=== PATIENT | female | born 1955 | race American Indian/Alaskan Native ===

== ENCOUNTER 2016-12-30 12:35 | Day surgery (SDC) | payer OTHER ==
[2016-12-30] MEDS ORDERED: NACL 0.9% 1000 ML 1,000 ML IV SCH (13:00)
--- NOTE | 2016-12-30 14:05 | Anesthesia Day of Surgery ---
Anesthesia Day of Surgery - Day of Surgery Patient Examined: Yes Patient H&P Reviewed: Yes Patient is NPO: Yes
--- NOTE | 2016-12-30 14:05 | Anesthesia Consultation ---
Anesthesia Consult and Med Hx Date of service: 12/30/16 - Airway Anesthetic Teeth Evaluation: Good ROM Head & Neck: Adequate Mental/Hyoid Distance: Adequate Mallampati Class: Class II Intubation Access Assessment: Probably Good - Pulmonary Exam CTA: Yes - Cardiac Exam Cardiac Exam: RRR - Pre-Operative Health Status ASA Pre-Surgery Classification: ASA3 Proposed Anesthetic Plan: MAC - Pulmonary Hx Smoking: Yes Hx Respiratory Symptoms: Yes (bronchitis, used albuterol this AM) - Cardiovascular System Hx Hypertension: Yes Hx Heart Attack/AMI: No - Central Nervous System Hx Seizures: No CVA: No Hx Back Pain: No - Gastrointestinal Hx Gastroesophageal Reflux Disease: No - Endocrine Hx Renal Disease: No Hx Liver Disease: No Hx Non-Insulin Dependent Diabetes: Yes - Hematic Hx Sickle Cell Disease: No - Other Systems Hx Obesity: Yes - Additional Comments Anesthesia Medical History Comments: PAIGE
[2016-12-30] MEDS ORDERED: DIPRIVAN 10 MG/ML IV ONE ×2 (16:19)
[2016-12-30] MEDS ORDERED: WATER FOR IRRIG STERILE IR ONE (16:22)
[2016-12-30] MEDS ORDERED: XYLOCAINE MPF 2% ONE (16:25)
--- NOTE | 2016-12-30 17:10 | Operative Report ---
Operative Report Operative Report: Date of procedure: 12/30/2016 Procedure: Colonoscopy with hot biopsy polypectomy and ablation Attending physician: Oneil Coker MD Bloom Conveyor Operator: Oneil Coker MD Indication: Patient is a 61-year-old female who presents for colorectal cancer screening. She has a past history of colon polyps. Consent: Informed consent was obtained after advising the patient and family regarding nature of this procedure, its indications, potential benefits as well as possible complications including but not limited to bleeding perforation and adverse reaction to medication, infection as well as other cardiopulmonary complications. An informed written and verbal consent was then obtained after due opportunity was provided for questions and answers. Monitoring: Patient was monitored continuously with pulse oximetry and electrocardiographic recordings as well as blood pressure recordings. Vital signs remained stable throughout this procedure with no untoward events. Preoperative assessment: Patient was assessed immediately prior to this procedure for capacity to tolerate monitored anesthesia care and moderate sedation as well as general anesthesia. Patient's ASA classification is 2, Mallampati class is 2, Hyomental distance is 3. Instrument: Fujinon videocolonoscope Medications: Propofol given intravenously in divided doses. For details please refer to anesthesia records. Description of procedure: Patient was placed in the left lateral decubitus position after achieving sedation, a digital rectal examination was performed following which the colonoscope was introduced into the anal verge and advanced to the cecum which was identified by the cecal valve, the appendiceal orifice, as well as by the cecal strap and direct transillumination. The colonoscope was subsequently withdrawn with careful inspection of all mucosal surfaces. Patient tolerated this procedure well and was subsequently taken to the recovery room. The following findings were noted. Findings: Patient had a diminutive polyp in the sigmoid colon which was removed by hot biopsy polypectomy. There was a flat diminutive polyp in the sigmoid colon which was also ablated. There were a few scattered diverticula seen in the sigmoid and descending colon. There are scattered retained stool seen throughout his colon. The rest of the colon however did not have any other mucosal abnormalities. On the retroflex view at the anal verge patient had internal hemorrhoids. Impression: Diminutive sigmoid colon polyp status post hot biopsy polypectomy and ablation Diverticulosis. Retained stool. Internal hemorrhoids. Plan: Follow pathology report High-fiber diet Repeat colonoscopy in 5 years.
--- NOTE | 2016-12-30 17:11 | Discharge Summary ---
Short Stay Discharge Plan Activity: advance as tolerated Weight Bearing Status: Weight Bear as Tolerated Diet: regular Follow up with: CASSANDRA NAVARRETE DO [Primary Care Provider] - 7 Days
[2016-12-30 17:15] VITALS: BP 130/66
--- NOTE | 2016-12-30 17:42 | Post Anesthesia Evaluation ---
- Post Anesthesia Evaluation Patient Participated: Yes Airway Patent: Yes Stable Respiratory Function: Yes Temp > 96.8F: Yes Pain Manageable: Yes Adequeate Hydration: Yes Anesthesia Complications: No Block Receding Appropriately: Not Applicable
== END 2016-12-30 12:36 | disposition home or self-care (01) ==
LOC: GIO 12:35
PROVIDERS: ATTEND Internal Medicine Gastroenterology
DX: Z12.11 Encounter for screening for malignant neoplasm of colon (principal); K63.5 Polyp of colon; K64.8 Other hemorrhoids; K57.30 Diverticulosis of large intestine without perforation or abscess without bleeding; F41.9 Anxiety disorder, unspecified; F32.9 Major depressive disorder, single episode, unspecified; M19.90 Unspecified osteoarthritis, unspecified site; E11.9 Type 2 diabetes mellitus without complications; I10 Essential (primary) hypertension; E66.9 Obesity, unspecified; Z86.010 Personal history of colon polyps; Z98.890 Other specified postprocedural states; Z87.891 Personal history of nicotine dependence; Z83.3 Family history of diabetes mellitus; Z83.71 Family history of colonic polyps; Z80.1 Family history of malignant neoplasm of trachea, bronchus and lung; Z68.33 Body mass index [BMI] 33.0-33.9, adult
CPT/HCPCS: 45384; 45388; 82962; 88305; J2704; J7030

== ENCOUNTER 2017-03-03 04:56 | Emergency (ER) | payer OTHER ==
[2017-03-03 05:43] LABS: Basophils % (Auto) 0.7 % (0.0-1.8); Hematocrit 37.4 % (30.3-42.9); Hemoglobin 12.4 gm/dl (10.1-14.3); Mean Corpuscular HGB Conc 33 % (30-34); Mean Corpuscular Hemoglobin 29 pg (28-32); Mean Corpuscular Volume 86 fl (79-97); Platelet Count 273 K/mm3 (140-440); Red Blood Count 4.34 M/mm3 (3.65-5.03); Red Cell Distribution Width 13.9 % (13.2-15.2); White Blood Count 4.8 K/mm3 (4.5-11.0)
[2017-03-03 06:10] LABS: Anion Gap 22 mmol/L; BUN/Creatinine Ratio 18.33; Blood Urea Nitrogen 11 mg/dL (7-17); Calcium 9.7 mg/dL (8.4-10.2); Carbon Dioxide 22 mmol/L (22-30); Chloride 98.2 mmol/L (98-107); Glucose 179 mg/dL (65-100); Potassium 3.7 mmol/L (3.6-5.0); Sodium 138 mmol/L (137-145)
[2017-03-03] MEDS ORDERED: TORADOL IM ONE (09:16)
[2017-03-03] MEDS ORDERED: NORCO 5/325 PO ONE (09:16)
--- NOTE | 2017-03-03 09:33 | XRay Report ---
ROUTINE CHEST, TWO VIEWS: HISTORY: Chest pain, shortness of breath. The trachea, heart, mediastinal contour, lung lawrence and bony thorax are unremarkable. IMPRESSION: Unremarkable chest x-ray. No significant change since 09/23/15.
--- NOTE | 2017-03-03 10:33 | Emergency Department Report ---
ED Chest Pain HPI - General Chief Complaint: Chest Pain Stated Complaint: CP Time Seen by Provider: 03/03/17 08:53 Source: patient, family Mode of arrival: Wheelchair Limitations: No Limitations - History of Present Illness Initial Comments: 61-year-old female with a past medical history diabetes, hypertension, anxiety, and panic attacks presents to the hospital complaints of chest pain 3 days that has progressively worsening. Pain described as a pressure and sharp at time in the sternum that is constant and radiates to the back. They should also states that it feels as if she needs to cough something up but can't. Pain is rated 8/10 in intensity. Pain worse with movement. Mild shortness of breath associated. Patient states that last week she was having a lot of sinus drainage, itchy eyes, and cough. She continues to have these symptoms secondary to pollen. She does not currently take any medications for allergies. She states she feels like she needs something to break up the mucus in her chest. Patient denies any nausea, vomiting, diaphoresis, cough, fever, calf tenderness, edema, recent travel, tobacco use, or family history of CAD. She reports a negative stress test in November 2016 performed on [facility] (? [facility] based on internet search) She has not taken any medication for pain. PMD: Dr. Adam Severity scale (0 -10): 8 - Related Data Home Medications Medication Instructions Recorded Confirmed Last Taken ALBUTEROL NEB's [Proventil] 2.5 mg IH Q4H PRN 03/03/17 03/03/17 1 Day Ago Acyclovir [Acyclovir Ointment] 1 applicatio TP TID 03/03/17 03/03/17 1 Day Ago Aspirin 81 mg PO QHS 03/03/17 03/03/17 1 Day Ago AtorvaSTATin [Lipitor] 20 mg PO QHS 03/03/17 03/03/17 1 Day Ago DULoxetine [Cymbalta] 30 mg PO DAILY 03/03/17 03/03/17 1 Day Ago Ergocalciferol [Vitamin D2] 1 cap PO QWEEK 03/03/17 03/03/17 1 Day Ago Hydrochlorothiazide [HCTZ] 25 mg PO QDAY 03/03/17 03/03/17 1 Day Ago LORazepam [Ativan] 1 mg PO DAILY PRN 03/03/17 03/03/17 1 Day Ago Losartan [Cozaar] 100 mg PO QDAY 03/03/17 03/03/17 1 Day Ago Nystatin/Triamcin [Mycolog Cream] 1 applicatio TP BID 03/03/17 03/03/17 1 Day Ago Phoenix-3 Fatty Acids [Fish Oil] 500 mg PO DAILY 03/03/17 03/03/17 1 Day Ago Verapamil [Calan] 120 mg PO QHS 03/03/17 03/03/17 1 Day Ago cloNIDine [Catapres] 0.2 mg PO BID 03/03/17 03/03/17 1 Day Ago clonazePAM [Klonopin] 2 mg PO TID 03/03/17 03/03/17 1 Day Ago guaiFENesin/CODEINE [Robitussin AC] 5 ml PO TID PRN 03/03/17 03/03/17 1 Day Ago metFORMIN [Glucophage] 500 mg PO BID 03/03/17 03/03/17 1 Day Ago Previous Rx's Medication Instructions Recorded Last Taken Type Cetirizine HCl [ZyrTEC] 10 mg PO DAILY PRN #30 tab.chew 03/03/17 Unknown Rx Ibuprofen [Motrin] 600 mg PO Q8H PRN #30 tablet 03/03/17 Unknown Rx traMADol [Ultram 50 MG tab] 50 mg PO Q6HR PRN #20 tablet 03/03/17 Unknown Rx Allergies Allergy/AdvReac Type Severity Reaction Status Date / Time No Known Allergies Allergy Verified 09/28/15 04:56 IVETH score - Iveth Score Age > 65: (0) No Aspirin use within the Past 7 Days: (1) Yes 3 or more CAD Risk Factors: (1) Yes 2 or more Angina events in past 24 hrs: (0) No Known CAD with more than 50% Stenosis: (0) No Elevated Cardiac Markers: (0) No ST Deviation Greater than 0.5mm: (0) No IVETH Score: 2 ED Review of Systems ROS: Stated complaint: CP Other details as noted in HPI Comment: All other systems reviewed and negative Other: Constitutional: No fevers chills Eyes: No eye pain visual changes ENT: No ear pain or throat pain Neck: Denies pain Respiratory: Denies cough wheezing Cardiovascular: as per hpi GI: Denies abdominal pain, nausea, vomiting, diarrhea : Denies dysuria, urinary frequency, or urgency Musculoskeletal: Denies back pain Skin: Denies rash, lesions, erythema Neurologic: Denies headache, numbness, weakness Psychiatric: Denies suicidal ideation, hallucinations ED Past Medical Hx - Past Medical History Hx Hypertension: Yes Hx Heart Attack/AMI: No Hx Diabetes: Yes Hx Liver Disease: No Hx Renal Disease: No Hx Sickle Cell Disease: No Hx Arthritis: Yes Hx Seizures: No Hx Psychiatric Treatment: Yes (ANXIETY/ PANIC ATTACKS/ DEPRESSION) Additional medical history: HERPES - Surgical History Hx Cholecystectomy: Yes Hx Appendectomy: Yes Additional Surgical History: HYSTERECTOMY. LEFT KNEE SURGERY X 2. RIGHT KNEE SURGERY. RIGHT CARPAL TUNNEL RELEASE. TONSILLECTOMY - Social History Smoking Status: Former Smoker Substance Use Type: None - Medications Home Medications: Home Medications Medication Instructions Recorded Confirmed Last Taken Type ALBUTEROL NEB's [Proventil] 2.5 mg IH Q4H PRN 03/03/17 03/03/17 1 Day Ago History Acyclovir [Acyclovir Ointment] 1 applicatio TP TID 03/03/17 03/03/17 1 Day Ago History Aspirin 81 mg PO QHS 03/03/17 03/03/17 1 Day Ago History AtorvaSTATin [Lipitor] 20 mg PO QHS 03/03/17 03/03/17 1 Day Ago History Cetirizine HCl [ZyrTEC] 10 mg PO DAILY PRN #30 tab.chew 03/03/17 Unknown Rx DULoxetine [Cymbalta] 30 mg PO DAILY 03/03/17 03/03/17 1 Day Ago History Ergocalciferol [Vitamin D2] 1 cap PO QWEEK 03/03/17 03/03/17 1 Day Ago History Hydrochlorothiazide [HCTZ] 25 mg PO QDAY 03/03/17 03/03/17 1 Day Ago History Ibuprofen [Motrin] 600 mg PO Q8H PRN #30 tablet 03/03/17 Unknown Rx LORazepam [Ativan] 1 mg PO DAILY PRN 03/03/17 03/03/17 1 Day Ago History Losartan [Cozaar] 100 mg PO QDAY 03/03/17 03/03/17 1 Day Ago History Nystatin/Triamcin [Mycolog Cream] 1 applicatio TP BID 03/03/17 03/03/17 1 Day Ago History Phoenix-3 Fatty Acids [Fish Oil] 500 mg PO DAILY 03/03/17 03/03/17 1 Day Ago History Verapamil [Calan] 120 mg PO QHS 03/03/17 03/03/17 1 Day Ago History cloNIDine [Catapres] 0.2 mg PO BID 03/03/17 03/03/17 1 Day Ago History clonazePAM [Klonopin] 2 mg PO TID 03/03/17 03/03/17 1 Day Ago History guaiFENesin/CODEINE [Robitussin AC] 5 ml PO TID PRN 03/03/17 03/03/17 1 Day Ago History metFORMIN [Glucophage] 500 mg PO BID 03/03/17 03/03/17 1 Day Ago History traMADol [Ultram 50 MG tab] 50 mg PO Q6HR PRN #20 tablet 03/03/17 Unknown Rx ED Physical Exam - General Limitations: No Limitations - Other Other exam information: Lab Results 03/03/17 03/03/17 03/03/17 Range/Units 05:19 05:19 08:08 WBC 4.8 (4.5-11.0) K/mm3 RBC 4.34 (3.65-5.03) M/mm3 Hgb 12.4 (10.1-14.3) gm/dl Hct 37.4 (30.3-42.9) % MCV 86 (79-97) fl MCH 29 (28-32) pg MCHC 33 (30-34) % RDW 13.9 (13.2-15.2) % Plt Count 273 (140-440) K/mm3 Lymph % (Auto) 38.6 H (13.4-35.0) % Crane % (Auto) 9.1 H (0.0-7.3) % Eos % (Auto) 2.0 (0.0-4.3) % Baso % (Auto) 0.7 (0.0-1.8) % Lymph # 1.9 (1.2-5.4) K/mm3 Crane # 0.4 (0.0-0.8) K/mm3 Eos # 0.1 (0.0-0.4) K/mm3 Baso # 0.0 (0.0-0.1) K/mm3 Seg Neutrophils % 49.6 (40.0-70.0) % Seg Neutrophils # 2.4 (1.8-7.7) K/mm3 D-Dimer (0-234) ng/mlDDU Sodium 138 (137-145) mmol/L Potassium 3.7 (3.6-5.0) mmol/L Chloride 98.2 (98-107) mmol/L Carbon Dioxide 22 (22-30) mmol/L Anion Gap 22 mmol/L BUN 11 (7-17) mg/dL Creatinine 0.6 L (0.7-1.2) mg/dL Estimated GFR > 60 ml/min BUN/Creatinine Ratio 18.33 % Glucose 179 H (65-100) mg/dL Calcium 9.7 (8.4-10.2) mg/dL Troponin T < 0.010 < 0.010 (0.00-0.029) ng/mL 03/03/17 Range/Units 09:22 WBC (4.5-11.0) K/mm3 RBC (3.65-5.03) M/mm3 Hgb (10.1-14.3) gm/dl Hct (30.3-42.9) % MCV (79-97) fl MCH (28-32) pg MCHC (30-34) % RDW (13.2-15.2) % Plt Count (140-440) K/mm3 Lymph % (Auto) (13.4-35.0) % Crane % (Auto) (0.0-7.3) % Eos % (Auto) (0.0-4.3) % Baso % (Auto) (0.0-1.8) % Lymph # (1.2-5.4) K/mm3 Crane # (0.0-0.8) K/mm3 Eos # (0.0-0.4) K/mm3 Baso # (0.0-0.1) K/mm3 Seg Neutrophils % (40.0-70.0) % Seg Neutrophils # (1.8-7.7) K/mm3 D-Dimer < 135 (0-234) ng/mlDDU Sodium (137-145) mmol/L Potassium (3.6-5.0) mmol/L Chloride (98-107) mmol/L Carbon Dioxide (22-30) mmol/L Anion Gap mmol/L BUN (7-17) mg/dL Creatinine (0.7-1.2) mg/dL Estimated GFR ml/min BUN/Creatinine Ratio % Glucose (65-100) mg/dL Calcium (8.4-10.2) mg/dL Troponin T (0.00-0.029) ng/mL ED Course Vital Signs 03/03/17 03/03/17 03/03/17 05:25 08:28 08:33 Temperature 98.3 F Pulse Rate 65 53 L 52 L Respiratory 14 13 Rate Blood Pressure 157/92 O2 Sat by Pulse 98 100 Oximetry 03/03/17 03/03/17 03/03/17 08:40 08:50 09:00 Temperature Pulse Rate 53 L 51 L 51 L Respiratory 12 16 14 Rate Blood Pressure 120/70 116/73 O2 Sat by Pulse 99 98 97 Oximetry 03/03/17 03/03/17 03/03/17 09:10 09:20 09:37 Temperature Pulse Rate 55 L 52 L 56 L Respiratory 12 11 L Rate Blood Pressure 116/73 116/73 116/73 O2 Sat by Pulse 100 99 Oximetry 03/03/17 09:53 Temperature Pulse Rate Respiratory 18 Rate Blood Pressure O2 Sat by Pulse Oximetry - Reevaluation(s) Reevaluation #1: 03/03/17 10:32 Patient provided Toradol and [place] for pain during ED stay ED Medical Decision Making - Lab Data Result diagrams: 03/03/17 05:19 03/03/17 05:19 Lab Results 03/03/17 03/03/17 03/03/17 Range/Units 05:19 05:19 08:08 WBC 4.8 (4.5-11.0) K/mm3 RBC 4.34 (3.65-5.03) M/mm3 Hgb 12.4 (10.1-14.3) gm/dl Hct 37.4 (30.3-42.9) % MCV 86 (79-97) fl MCH 29 (28-32) pg MCHC 33 (30-34) % RDW 13.9 (13.2-15.2) % Plt Count 273 (140-440) K/mm3 Lymph % (Auto) 38.6 H (13.4-35.0) % Crane % (Auto) 9.1 H (0.0-7.3) % Eos % (Auto) 2.0 (0.0-4.3) % Baso % (Auto) 0.7 (0.0-1.8) % Lymph # 1.9 (1.2-5.4) K/mm3 Crane # 0.4 (0.0-0.8) K/mm3 Eos # 0.1 (0.0-0.4) K/mm3 Baso # 0.0 (0.0-0.1) K/mm3 Seg Neutrophils % 49.6 (40.0-70.0) % Seg Neutrophils # 2.4 (1.8-7.7) K/mm3 D-Dimer (0-234) ng/mlDDU Sodium 138 (137-145) mmol/L Potassium 3.7 (3.6-5.0) mmol/L Chloride 98.2 (98-107) mmol/L Carbon Dioxide 22 (22-30) mmol/L Anion Gap 22 mmol/L BUN 11 (7-17) mg/dL Creatinine 0.6 L (0.7-1.2) mg/dL Estimated GFR > 60 ml/min BUN/Creatinine Ratio 18.33 % Glucose 179 H (65-100) mg/dL Calcium 9.7 (8.4-10.2) mg/dL Troponin T < 0.010 < 0.010 (0.00-0.029) ng/mL 03/03/17 Range/Units 09:22 WBC (4.5-11.0) K/mm3 RBC (3.65-5.03) M/mm3 Hgb (10.1-14.3) gm/dl Hct (30.3-42.9) % MCV (79-97) fl MCH (28-32) pg MCHC (30-34) % RDW (13.2-15.2) % Plt Count (140-440) K/mm3 Lymph % (Auto) (13.4-35.0) % Crane % (Auto) (0.0-7.3) % Eos % (Auto) (0.0-4.3) % Baso % (Auto) (0.0-1.8) % Lymph # (1.2-5.4) K/mm3 Crane # (0.0-0.8) K/mm3 Eos # (0.0-0.4) K/mm3 Baso # (0.0-0.1) K/mm3 Seg Neutrophils % (40.0-70.0) % Seg Neutrophils # (1.8-7.7) K/mm3 D-Dimer < 135 (0-234) ng/mlDDU Sodium (137-145) mmol/L Potassium (3.6-5.0) mmol/L Chloride (98-107) mmol/L Carbon Dioxide (22-30) mmol/L Anion Gap mmol/L BUN (7-17) mg/dL Creatinine (0.7-1.2) mg/dL Estimated GFR ml/min BUN/Creatinine Ratio % Glucose (65-100) mg/dL Calcium (8.4-10.2) mg/dL Troponin T (0.00-0.029) ng/mL - EKG Data -: EKG Interpreted by Me (sinus rate 64 anterior T-wave inversions) - EKG Data When compared to previous EKG there are: no significant change (compared to ) - Radiology Data Radiology results: report reviewed (chest x-ray: naf) - Medical Decision Making Pt's chest pain is atypical and producible with movement. Patient is to recent coughing and allergy symptoms. He reports a negative stress test in November 2016. EKG does not show any changes since 2014. Patient has 2 sets of negative cardiac enzymes and a negative d-dimer in the ED without PE/DVT risk factors positive improvement of symptoms with ED treatment. I believe the patient's pain is musculoskeletal secondary to recent coughing. No signs of infiltrate. Patient requesting symptoms to break up the mucus but cough that sounds fairly dry. I suspect that patient is also having seasonal allergies. She'll be treated symptomatically for pain and allergies. Informed that if patient continues to have coughing issues and feels as though she needs help producing sputum she may try Mucinex [id number]. - Differential Diagnosis MA, costochondritis, chest wall pain, unstable angina, PE Critical Care Time: No Critical care attestation.: If time is entered above; I have spent that time in minutes in the direct care of this critically ill patient, excluding procedure time. ED Disposition Clinical Impression: Seasonal allergies, Chest wall pain, Cough Disposition: DISCHARGED TO HOME OR SELFCARE Is pt being admited?: No Does the pt Need Aspirin: No Condition: Stable Instructions: Thoracic Pain (ED), Allergic Rhinitis (ED) Additional Instructions: You're being discharged home on medications for seasonal allergies and chest wall related pain. The cough seems dry today. If the cough becomes more productive of sputum you may take Mucinex to help clear the sputum. Avoid medications that have the D or have pseudoephedrine because they may increase your blood pressure. We have questions regarding blood pressure for any medication [id number] ask a local pharmacist. Otherwise, follow very closely with your primary care doctor for further evaluation. Please return if symptoms worsen. Prescriptions: Cetirizine HCl [ZyrTEC] 10 mg PO DAILY PRN #30 tab.chew PRN Reason: Allergy Symptoms Ibuprofen [Motrin] 600 mg PO Q8H PRN #30 tablet PRN Reason: Pain traMADol [Ultram 50 MG tab] 50 mg PO Q6HR PRN #20 tablet PRN Reason: Pain Referrals: PRIMARY CARE, [Primary Care Provider] - 2-3 Days Time of Disposition: 10:47
[2017-03-03 11:48] VITALS: BP 132/75
== END 2017-03-03 11:51 | disposition home or self-care (01) ==
LOC: ED 04:56
DX: J30.2 Other seasonal allergic rhinitis (principal); R07.89 Other chest pain; R05 Cough; I10 Essential (primary) hypertension; E11.9 Type 2 diabetes mellitus without complications; Z87.891 Personal history of nicotine dependence
CPT/HCPCS: 36415; 71020; 80048; 84484; 85025; 85379; 93005; 93010; 96372; 99285; J1885

== ENCOUNTER 2017-08-22 12:56 | Emergency (ER) | payer OTHER ==
[2017-08-22 14:10] LABS: Hematocrit 37.1 % (30.3-42.9); Hemoglobin 12.3 gm/dl (10.1-14.3); Mean Corpuscular Hemoglobin 29 pg (28-32); Mean Corpuscular Volume 87 fl (79-97); Red Blood Count 4.28 M/mm3 (3.65-5.03); White Blood Count 4.2 K/mm3 (4.5-11.0)
[2017-08-22 14:11] LABS: Basophils % (Auto) 0.3 % (0.0-1.8); Eosinophils % (Auto) 1.1 % (0.0-4.3); Mean Corpuscular HGB Conc 33 % (30-34); Platelet Count 267 K/mm3 (140-440); Red Cell Distribution Width 14.3 % (13.2-15.2)
[2017-08-22 14:46] LABS: Anion Gap 21 mmol/L; Blood Urea Nitrogen 7 mg/dL (7-17); Calcium 10.1 mg/dL (8.4-10.2); Carbon Dioxide 26 mmol/L (22-30); Chloride 92.2 mmol/L (98-107); Glucose 100 mg/dL (65-100); Potassium 3.7 mmol/L (3.6-5.0); Sodium 135 mmol/L (137-145)
--- NOTE | 2017-08-22 18:47 | Cat Scan Report ---
FINAL REPORT EXAM: CT HEAD/BRAIN WO CON HISTORY: blurred vision headache TECHNIQUE: CT was performed from the foramen magnum through the vertex in the axial plane without the use of intravenous contrast. PRIORS: None. FINDINGS: The andrade/white matter attenuation pattern is normal. There is no mass lesion or mass effect. There are no abnormal extra-axial fluid collections. There is no evidence of acute intracranial hemorrhage or infarct. The ventricles are of normal size and configuration. The skull and orbits are unremarkable. The visualized paranasal sinuses are clear. IMPRESSION: Normal CT of the head.
[2017-08-22] MEDS ORDERED: BENADRYL IV ONE (18:59)
[2017-08-22] MEDS ORDERED: TORADOL IV ONE (18:59)
[2017-08-22] MEDS ORDERED: REGLAN IV ONE (18:59)
--- NOTE | 2017-08-22 19:00 | Emergency Department Report ---
ED General Adult HPI - General Chief complaint: Dizziness Stated complaint: ELEVATED BP Time Seen by Provider: 08/22/17 17:57 Source: patient Mode of arrival: Ambulatory Limitations: No Limitations - History of Present Illness Initial comments: Pt is a 60-year-old female past medical history of high blood pressure. Presents with headache that occurred today. Headache was gradual in onset she states it's an 8 out of 10. Doesn't radiate throughout her head it is an achy type of pain patient had some blurry vision with the headache. Patient had no nausea or vomiting. Patient was taking her blood pressure with this headache and she noticed her blood pressure was high. Light and noise make the headache worse dark and quiet makes the headache better. Patient states that she's had headaches like this before in the past about 20 years ago when she frequently had migraine headaches. - Related Data Home Medications Medication Instructions Recorded Confirmed Last Taken ALBUTEROL NEB's [Proventil] 2.5 mg IH Q4H PRN 03/03/17 03/03/17 1 Day Ago Acyclovir [Acyclovir Ointment] 1 applicatio TP TID 03/03/17 03/03/17 1 Day Ago Aspirin 81 mg PO QHS 03/03/17 03/03/17 1 Day Ago AtorvaSTATin [Lipitor] 20 mg PO QHS 03/03/17 03/03/17 1 Day Ago DULoxetine [Cymbalta] 30 mg PO DAILY 03/03/17 03/03/17 1 Day Ago Ergocalciferol [Vitamin D2] 1 cap PO QWEEK 03/03/17 03/03/17 1 Day Ago Hydrochlorothiazide [HCTZ] 25 mg PO QDAY 03/03/17 03/03/17 1 Day Ago LORazepam [Ativan] 1 mg PO DAILY PRN 03/03/17 03/03/17 1 Day Ago Losartan [Cozaar] 100 mg PO QDAY 03/03/17 03/03/17 1 Day Ago Nystatin/Triamcin [Mycolog Cream] 1 applicatio TP BID 03/03/17 03/03/17 1 Day Ago [place]-3 Fatty Acids [Fish Oil] 500 mg PO DAILY 03/03/17 03/03/17 1 Day Ago Verapamil [Calan] 120 mg PO QHS 03/03/17 03/03/17 1 Day Ago cloNIDine [Catapres] 0.2 mg PO BID 03/03/17 03/03/17 1 Day Ago clonazePAM [Klonopin] 2 mg PO TID 03/03/17 03/03/17 1 Day Ago guaiFENesin/CODEINE [Robitussin AC] 5 ml PO TID PRN 03/03/17 03/03/17 1 Day Ago metFORMIN [Glucophage] 500 mg PO BID 03/03/17 03/03/17 1 Day Ago Previous Rx's Medication Instructions Recorded Last Taken Type Cetirizine HCl [ZyrTEC] 10 mg PO DAILY PRN #30 tab.chew 03/03/17 Unknown Rx Ibuprofen [Motrin] 600 mg PO Q8H PRN #30 tablet 03/03/17 Unknown Rx traMADol [Ultram 50 MG tab] 50 mg PO Q6HR PRN #20 tablet 03/03/17 Unknown Rx Butalb/Acetamin/Caff 50-325-40 1 tab PO Q6HR PRN #20 tab 08/22/17 Unknown Rx [Fioricet] Allergies Allergy/AdvReac Type Severity Reaction Status Date / Time No Known Allergies Allergy Verified 09/28/15 04:56 ED Review of Systems ROS: Stated complaint: ELEVATED BP Other details as noted in HPI Constitutional: denies: chills, fever Eyes: vision change. denies: eye pain, eye discharge ENT: denies: ear pain, throat pain Respiratory: denies: cough, shortness of breath, wheezing Cardiovascular: denies: chest pain, palpitations Endocrine: no symptoms reported Gastrointestinal: denies: abdominal pain, nausea, diarrhea Genitourinary: denies: urgency, dysuria, discharge Musculoskeletal: denies: back pain, joint swelling, arthralgia Skin: denies: rash, lesions Neurological: headache. denies: weakness, paresthesias Psychiatric: denies: anxiety, depression Hematological/Lymphatic: denies: easy bleeding, easy bruising ED Past Medical Hx - Past Medical History Previous Medical History?: Yes Hx Hypertension: Yes Hx Heart Attack/AMI: No Hx Diabetes: Yes Hx Liver Disease: No Hx Renal Disease: No Hx Sickle Cell Disease: No Hx Arthritis: Yes Hx Seizures: No Hx Psychiatric Treatment: Yes (ANXIETY/ PANIC ATTACKS/ DEPRESSION) Additional medical history: HERPES, elevated cholesterol, osteopenia - Surgical History Past Surgical History?: Yes Hx Cholecystectomy: Yes Hx Appendectomy: Yes Additional Surgical History: HYSTERECTOMY. LEFT KNEE SURGERY X 2. RIGHT KNEE SURGERY. RIGHT CARPAL TUNNEL RELEASE. TONSILLECTOMY - Social History Smoking Status: Former Smoker Substance Use Type: None - Medications Home Medications: Home Medications Medication Instructions Recorded Confirmed Last Taken Type ALBUTEROL NEB's [Proventil] 2.5 mg IH Q4H PRN 03/03/17 03/03/17 1 Day Ago History Acyclovir [Acyclovir Ointment] 1 applicatio TP TID 03/03/17 03/03/17 1 Day Ago History Aspirin 81 mg PO QHS 03/03/17 03/03/17 1 Day Ago History AtorvaSTATin [Lipitor] 20 mg PO QHS 03/03/17 03/03/17 1 Day Ago History Cetirizine HCl [ZyrTEC] 10 mg PO DAILY PRN #30 tab.chew 03/03/17 Unknown Rx DULoxetine [Cymbalta] 30 mg PO DAILY 03/03/17 03/03/17 1 Day Ago History Ergocalciferol [Vitamin D2] 1 cap PO QWEEK 03/03/17 03/03/17 1 Day Ago History Hydrochlorothiazide [HCTZ] 25 mg PO QDAY 03/03/17 03/03/17 1 Day Ago History Ibuprofen [Motrin] 600 mg PO Q8H PRN #30 tablet 03/03/17 Unknown Rx LORazepam [Ativan] 1 mg PO DAILY PRN 03/03/17 03/03/17 1 Day Ago History Losartan [Cozaar] 100 mg PO QDAY 03/03/17 03/03/17 1 Day Ago History Nystatin/Triamcin [Mycolog Cream] 1 applicatio TP BID 03/03/17 03/03/17 1 Day Ago History [place]-3 Fatty Acids [Fish Oil] 500 mg PO DAILY 03/03/17 03/03/17 1 Day Ago History Verapamil [Calan] 120 mg PO QHS 03/03/17 03/03/17 1 Day Ago History cloNIDine [Catapres] 0.2 mg PO BID 03/03/17 03/03/17 1 Day Ago History clonazePAM [Klonopin] 2 mg PO TID 03/03/17 03/03/17 1 Day Ago History guaiFENesin/CODEINE [Robitussin AC] 5 ml PO TID PRN 03/03/17 03/03/17 1 Day Ago History metFORMIN [Glucophage] 500 mg PO BID 03/03/17 03/03/17 1 Day Ago History traMADol [Ultram 50 MG tab] 50 mg PO Q6HR PRN #20 tablet 03/03/17 Unknown Rx Butalb/Acetamin/Caff 50-325-40 1 tab PO Q6HR PRN #20 tab 08/22/17 Unknown Rx [Fioricet] ED Physical Exam - General Limitations: No Limitations General appearance: alert, in no apparent distress - Head Head exam: Present: atraumatic, normocephalic - Eye Eye exam: Present: normal appearance - ENT ENT exam: Present: mucous membranes moist - Neck Neck exam: Present: normal inspection - Respiratory Respiratory exam: Present: normal lung sounds bilaterally. Absent: respiratory distress - Cardiovascular Cardiovascular Exam: Present: regular rate, normal rhythm. Absent: systolic murmur, diastolic murmur, rubs, gallop - GI/Abdominal GI/Abdominal exam: Present: soft, normal bowel sounds - Extremities Exam Extremities exam: Present: normal inspection - Back Exam Back exam: Present: normal inspection - Neurological Exam Neurological exam: Present: alert, oriented X3 - Psychiatric Psychiatric exam: Present: normal affect, normal mood - Skin Skin exam: Present: warm, dry, intact, normal color. Absent: rash ED Course Vital Signs 08/22/17 08/22/17 08/22/17 13:31 19:44 19:45 Temperature 98.5 F Pulse Rate 61 Respiratory 18 Rate Blood Pressure 180/89 Blood Pressure [Right] O2 Sat by Pulse 99 99 100 Oximetry 08/22/17 08/22/17 08/22/17 20:00 20:16 20:30 Temperature Pulse Rate Respiratory Rate Blood Pressure 186/86 186/86 146/84 Blood Pressure [Right] O2 Sat by Pulse 100 100 100 Oximetry 08/22/17 20:43 Temperature 98.7 F Pulse Rate 54 L Respiratory 18 Rate Blood Pressure Blood Pressure 145/85 [Right] O2 Sat by Pulse 100 Oximetry ED Medical Decision Making - Lab Data Result diagrams: 08/22/17 13:50 08/22/17 13:50 Lab Results 08/22/17 08/22/17 08/22/17 Range/Units 13:50 13:50 16:15 WBC 4.2 L (4.5-11.0) K/mm3 RBC 4.28 (3.65-5.03) M/mm3 Hgb 12.3 (10.1-14.3) gm/dl Hct 37.1 (30.3-42.9) % MCV 87 (79-97) fl MCH 29 (28-32) pg MCHC 33 (30-34) % RDW 14.3 (13.2-15.2) % Plt Count 267 (140-440) K/mm3 Lymph % (Auto) 51.7 H (13.4-35.0) % Isabela % (Auto) 9.8 H (0.0-7.3) % Eos % (Auto) 1.1 (0.0-4.3) % Baso % (Auto) 0.3 (0.0-1.8) % Lymph # 2.2 (1.2-5.4) K/mm3 Isabela # 0.4 (0.0-0.8) K/mm3 Eos # 0.0 (0.0-0.4) K/mm3 Baso # 0.0 (0.0-0.1) K/mm3 Seg Neutrophils % 37.1 L (40.0-70.0) % Seg Neutrophils # 1.6 L (1.8-7.7) K/mm3 Sodium 135 L (137-145) mmol/L Potassium 3.7 (3.6-5.0) mmol/L Chloride 92.2 L (98-107) mmol/L Carbon Dioxide 26 (22-30) mmol/L Anion Gap 21 mmol/L BUN 7 (7-17) mg/dL Creatinine 0.7 (0.7-1.2) mg/dL Estimated GFR > 60 ml/min BUN/Creatinine Ratio 10.00 % Glucose 100 (65-100) mg/dL POC Glucose (70-105) Calcium 10.1 (8.4-10.2) mg/dL Troponin T < 0.010 < 0.010 (0.00-0.029) ng/mL 08/22/17 08/22/17 Range/Units 18:44 19:52 WBC (4.5-11.0) K/mm3 RBC (3.65-5.03) M/mm3 Hgb (10.1-14.3) gm/dl Hct (30.3-42.9) % MCV (79-97) fl MCH (28-32) pg MCHC (30-34) % RDW (13.2-15.2) % Plt Count (140-440) K/mm3 Lymph % (Auto) (13.4-35.0) % Isabela % (Auto) (0.0-7.3) % Eos % (Auto) (0.0-4.3) % Baso % (Auto) (0.0-1.8) % Lymph # (1.2-5.4) K/mm3 Isabela # (0.0-0.8) K/mm3 Eos # (0.0-0.4) K/mm3 Baso # (0.0-0.1) K/mm3 Seg Neutrophils % (40.0-70.0) % Seg Neutrophils # (1.8-7.7) K/mm3 Sodium (137-145) mmol/L Potassium (3.6-5.0) mmol/L Chloride (98-107) mmol/L Carbon Dioxide (22-30) mmol/L Anion Gap mmol/L BUN (7-17) mg/dL Creatinine (0.7-1.2) mg/dL Estimated GFR ml/min BUN/Creatinine Ratio % Glucose (65-100) mg/dL POC Glucose 90 (70-105) Calcium (8.4-10.2) mg/dL Troponin T < 0.010 (0.00-0.029) ng/mL - EKG Data -: EKG Interpreted by Ny - EKG Data 08/22/17 20:47 EKG shows normal sinus rhythm T-wave inversion in leads V1 and V2 V3 no ST segment elevation normal axis. - Radiology Data Radiology results: report reviewed, image reviewed CT head: Shows no acute intracranial process - Medical Decision Making Chief medical diagnosis: Tension headache Differential medical diagnosis: Migraine headache, brain tumor, subdural bleed I will get CBC, CMP, troponin, EKG, CT had an IV antiemetics and IV pain medication Patient is doing better after IV Benadryl and IV Reglan. Patient's head CT is unremarkable as are her laboratory findings. Patient most likely had a tension headache given the history and course of her headache. I will send patient home with Mipso. M will have patient follow up with PCP. Discussed plan with patient and she agrees. Additional verbal discharge instructions were given. Critical care attestation.: If time is entered above; I have spent that time in minutes in the direct care of this critically ill patient, excluding procedure time. ED Disposition Clinical Impression: Tension headache, Blurry vision Disposition: DC- TO HOME OR SELFCARE Is pt being admited?: No Does the pt Need Aspirin: No Condition: Stable Instructions: Tension Headache (ED) Prescriptions: Butalb/Acetamin/Caff 50-325-40 [Fioricet] 1 tab PO Q6HR PRN #20 tab PRN Reason: Headache Referrals: CASSANDRA NAVARRTEE DO [Primary Care Provider] - 3-5 Days
[2017-08-22 20:45] VITALS: BP 146/84
== END 2017-08-22 21:30 | disposition home or self-care (01) ==
LOC: ED 12:56
DX: I10 Essential (primary) hypertension (principal); G44.209 Tension-type headache, unspecified, not intractable; H53.8 Other visual disturbances; E11.9 Type 2 diabetes mellitus without complications
CPT/HCPCS: 36415; 70450; 80048; 82962; 84484; 85025; 93005; 93010; 96374; 96375; 99284; J1200; J1885; J2765

== ENCOUNTER 2020-03-05 03:07 | Emergency (ER) | payer MEDICARE, OTHER ==
[2020-03-05] MEDS ORDERED: MECLIZINE 25 MG TAB PO ONE (07:45)
[2020-03-05] MEDS ORDERED: ONDANSETRON 4 MG/2 ML INJ IV ONE (07:45)
[2020-03-05] MEDS ORDERED: SODIUM CHLORIDE 0.9% 1000 ML 1,000 ML IV ONE (07:45)
--- NOTE | 2020-03-05 07:52 | Emergency Department Report ---
ED Dizziness HPI - General Chief Complaint: Dizziness Stated Complaint: DIZZINESS Time Seen by Provider: 03/05/20 07:27 Source: patient Mode of arrival: Ambulatory Limitations: No Limitations - History of Present Illness Initial Comments: Patient is 64 years old female with history of hypertension and diabetes. Patient presented to the ER complaining of dizziness, nausea vomiting and diarrhea for the last 3 days. Patient denied any fever or chills. She stated that she is having some runny nose and sneezing but she stated that this is most likely to her seasonal allergy. Patient denies any shortness of breath or chest pain. Patient also denied any focal weakness, numbness or tingling sensation. Patient denied being in contact with a new one with confirmed or suspected COVID-19. During my examination I used PPE including N-95 mask. MD Complaint: dizziness, lightheadedness -: days(s) (3) Timing: gradual onset Description: sense of movement, "room spinning", lightheadedness History of Same: No Severity: moderate Improves With: remaining still Worsens With: position - Related Data Home Medications Medication Instructions Recorded Confirmed Last Taken ALBUTEROL NEB's [Proventil] 2.5 mg IH Q4H PRN 03/03/17 03/05/20 1 Day Ago ~03/02/17 Aspirin 81 mg PO QHS 03/03/17 03/05/20 03/04/20 AtorvaSTATin [Lipitor] 20 mg PO QHS 03/03/17 03/05/20 03/04/20 DULoxetine [Cymbalta] 30 mg PO DAILY 03/03/17 03/05/20 03/04/20 Ergocalciferol [Vitamin D2] 1 cap PO QWEEK 03/03/17 03/05/20 1 Day Ago ~03/02/17 LORazepam [Ativan] 1 mg PO DAILY PRN 03/03/17 03/05/20 03/04/20 Losartan [Cozaar] 100 mg PO QDAY 03/03/17 03/05/20 03/05/20 [place]-3/Dha/Epa/Fish Oil [Fish Oil] 500 mg PO DAILY 03/03/17 03/05/20 03/04/20 cloNIDine [Catapres] 0.2 mg PO BID 03/03/17 03/05/20 03/05/20 clonazePAM [Klonopin] 2 mg PO TID 03/03/17 03/05/20 03/04/20 hydroCHLOROthiazide [HCTZ] 25 mg PO QDAY 03/03/17 03/05/20 03/05/20 Allergies Allergy/AdvReac Type Severity Reaction Status Date / Time No Known Allergies Allergy Verified 03/05/20 03:17 ED Review of Systems ROS: Stated complaint: DIZZINESS Other details as noted in HPI Comment: All other systems reviewed and negative Constitutional: denies: chills, fever Respiratory: denies: cough, shortness of breath, SOB with exertion Cardiovascular: denies: chest pain, palpitations Gastrointestinal: nausea, vomiting, diarrhea. denies: abdominal pain, con stipation, hematemesis, melena, hematochezia Genitourinary: denies: urgency, dysuria Musculoskeletal: denies: back pain Neurological: vertigo. denies: headache, weakness, numbness, paresthesias, confusion, abnormal gait ED Past Medical Hx - Past Medical History Hx Hypertension: Yes Hx Heart Attack/AMI: No Hx Diabetes: Yes Hx Liver Disease: No Hx Renal Disease: No Hx Sickle Cell Disease: No Hx Arthritis: Yes Hx Seizures: No Hx Psychiatric Treatment: Yes (ANXIETY/ PANIC ATTACKS/ DEPRESSION) Additional medical history: HERPES, elevated cholesterol, osteopenia - Surgical History Hx Cholecystectomy: Yes Hx Appendectomy: Yes Additional Surgical History: HYSTERECTOMY. LEFT KNEE SURGERY X 2. RIGHT KNEE SURGERY. RIGHT CARPAL TUNNEL RELEASE. TONSILLECTOMY - Social History Smoking Status: Never Smoker Substance Use Type: None - Medications Home Medications: Home Medications Medication Instructions Recorded Confirmed Last Taken Type ALBUTEROL NEB's [Proventil] 2.5 mg IH Q4H PRN 03/03/17 03/05/20 1 Day Ago History ~03/02/17 Aspirin 81 mg PO QHS 03/03/17 03/05/20 03/04/20 History AtorvaSTATin [Lipitor] 20 mg PO QHS 03/03/17 03/05/20 03/04/20 History DULoxetine [Cymbalta] 30 mg PO DAILY 03/03/17 03/05/20 03/04/20 History Ergocalciferol [Vitamin D2] 1 cap PO QWEEK 03/03/17 03/05/20 1 Day Ago History ~03/02/17 LORazepam [Ativan] 1 mg PO DAILY PRN 03/03/17 03/05/20 03/04/20 History Losartan [Cozaar] 100 mg PO QDAY 03/03/17 03/05/20 03/05/20 History [place]-3/Dha/Epa/Fish Oil [Fish Oil] 500 mg PO DAILY 03/03/17 03/05/20 03/04/20 History cloNIDine [Catapres] 0.2 mg PO BID 03/03/17 03/05/20 03/05/20 History clonazePAM [Klonopin] 2 mg PO TID 03/03/17 03/05/20 03/04/20 History hydroCHLOROthiazide [HCTZ] 25 mg PO QDAY 03/03/17 03/05/20 03/05/20 History ED Physical Exam - General Limitations: No Limitations General appearance: alert, in no apparent distress - Head Head exam: Present: atraumatic, normocephalic, normal inspection - Eye Eye exam: Present: normal appearance, PERRL - ENT ENT exam: Present: mucous membranes dry - Neck Neck exam: Present: normal inspection, full ROM. Absent: tenderness, meningismus, lymphadenopathy, thyromegaly - Respiratory Respiratory exam: Present: normal lung sounds bilaterally - Cardiovascular Cardiovascular Exam: Present: regular rate, normal rhythm, normal heart sounds - GI/Abdominal GI/Abdominal exam: Present: soft, normal bowel sounds. Absent: distended, tenderness, guarding, rebound, rigid, organomegaly, mass, bruit, pulsatile mass, hernia - Extremities Exam Extremities exam: Present: normal inspection, full ROM, normal capillary refill. Absent: pedal edema, calf tenderness - Back Exam Back exam: Present: normal inspection, full ROM. Absent: CVA tenderness (R), CVA tenderness (L), muscle spasm, paraspinal tenderness, vertebral tenderness - Neurological Exam Neurological exam: Present: alert, oriented X3, CN II-XII intact, normal gait, reflexes normal. Absent: motor sensory deficit - Psychiatric Psychiatric exam: Present: normal mood - Skin Skin exam: Present: warm, intact, normal color ED Course Vital Signs 03/05/20 03/05/20 03/05/20 03:13 03:31 06:02 Temperature 98.1 F 97.7 F Pulse Rate 59 L 77 56 L Respiratory 18 18 13 Rate Blood Pressure 174/89 105/62 Blood Pressure [Right] O2 Sat by Pulse 100 97 Oximetry 03/05/20 03/05/20 03/05/20 06:04 07:00 08:00 Temperature 99.2 F Pulse Rate 62 57 L Respiratory 16 18 13 Rate Blood Pressure 150/79 149/74 Blood Pressure 150/79 [Right] O2 Sat by Pulse 99 97 98 Oximetry 03/05/20 03/05/20 09:00 11:57 Temperature 98.7 F Pulse Rate 58 L 59 L Respiratory 13 18 Rate Blood Pressure 159/86 Blood Pressure 166/81 [Right] O2 Sat by Pulse 99 99 Oximetry ED Medical Decision Making - Lab Data Result diagrams: 03/05/20 08:13 03/05/20 08:13 - EKG Data -: EKG Interpreted by Ok EKG shows normal: sinus rhythm Rate: bradycardia - EKG Data Interpretation: no acute changes - Radiology Data Radiology results: report reviewed - Medical Decision Making Patient is 64 years old female with history of hypertension and diabetes. Patient presented to the ER complaining of dizziness, nausea vomiting and diarrhea for the last 3 days. Patient denied any fever or chills. She stated that she is having some runny nose and sneezing but she stated that this is most likely to her seasonal allergy. Patient denies any shortness of breath or chest pain. Patient also denied any focal weakness, numbness or tingling s ensation. Patient received normal saline, Zofran and meclizine. Patient stated that she is feeling much better. No more nausea or vomiting. Labs reviewed and is unremarkable except for a sodium of 123. CT brain is negative for acute finding. Chest x-ray is unremarkable. Patient given prescription for Zofran and advised to increase her fluid intake and follow-up with her primary care physician in the next 2 to 3 days and to return to the ER if she develop any new symptoms. Critical care attestation.: If time is entered above; I have spent that time in minutes in the direct care of this critically ill patient, excluding procedure time. ED Disposition Clinical Impression: Dizziness, Hyponatremia, Nausea and vomiting Disposition: -01 TO HOME OR SELFCARE Is pt being admited?: No Condition: Stable Instructions: Hyponatremia (ED), Dizziness (ED), Acute Nausea and Vomiting (ED) Referrals: CASSANDRA NAVARRETE [Other] - 3-5 Days
[2020-03-05 08:31] LABS: Basophils % (Auto) 0.3 % (0.0-1.8); Eosinophils % (Auto) 0.3 % (0.0-4.3); Hematocrit 37.9 % (30.3-42.9); Hemoglobin 12.7 gm/dl (10.1-14.3); Lymphocytes # (Auto) 1.5 K/mm3 (1.2-5.4); Lymphocytes % (Auto) 34.6 % (13.4-35.0); Mean Corpuscular HGB Conc 34 % (30-34); Mean Corpuscular Volume 90 fl (79-97); Monocytes # (Auto) 0.4 K/mm3 (0.0-0.8); Monocytes % (Auto) 9.3 % (0.0-7.3); Platelet Count 260 K/mm3 (140-440); Red Blood Count 4.23 M/mm3 (3.65-5.03); Red Cell Distribution Width 13.1 % (13.2-15.2)
--- NOTE | 2020-03-05 08:33 | XRay Report ---
CHEST 1 VIEW, 03/05/2020 7:05 AM CLINICAL INFORMATION/INDICATION: Lightheadedness. Dizziness. COMPARISON: Chest radiograph, 03/03/2017 FINDINGS: SUPPORT DEVICES: None. HEART: The cardiac silhouette is normal in size. LUNGS/PLEURA: The lungs are clear of focal airspace disease or significant pleural effusion. ADDITIONAL FINDINGS: No additional acute findings. IMPRESSION: 1. No evidence of acute cardiopulmonary process. Signer Name: Purnima Purdy MD Signed: 03/05/2020 8:29 AM Workstation Name: [email or web address]
[2020-03-05 08:49] LABS: Alanine Aminotransferase 13 units/L (7-56); Albumin 4.5 g/dL (3.9-5); BUN/Creatinine Ratio 15; Blood Urea Nitrogen 6 mg/dL (7-17); Calcium 9.7 mg/dL (8.4-10.2); Hemolysis Index 7
--- NOTE | 2020-03-05 09:05 | Cat Scan Report ---
Examination: CT of the head without contrast Clinical information: Lightheadedness and dizziness for one week Comparison: CT of the head, 08/22/2017 Technical: Multiple axial CT images of the head were obtained without intravenous contrast. Sagittal and coronal reformats were obtained. All CTs at this facility utilize dose reduction techniques inc luding automated exposure control, iterative reconstruction and weight based dosing when appropriate to reduce patient radiation dose to as low as reasonable achievable. Findings: There is no CT evidence of acute intracranial hemorrhage or large territorial infarct. The ventricular system remains normal in size. Evaluation of the calvarium demonstrates no evidence of acute bony abnormality. The visualized parana giselle sinuses and mastoid air cells are clear. Impression: 1. No CT evidence of acute intracranial process. Signer Name: Purnima Purdy MD Signed: 03/05/2020 9:01 AM Workstation Name: [email or web address]
[2020-03-05 09:34] LABS: Bilirubin,Urine NEG (Negative); Blood,Urine NEG (Negative); Color,Urine Colorless (Yellow); Protein,Urine <15 mg/dL mg/dL (Negative); Urobilinogen,Urine < 2.0 mg/dL (<2.0)
[2020-03-05 09:38] LABS: WBC,Urine < 1.0 /HPF (0.0-6.0)
[2020-03-05 11:58] VITALS: BP 166/81
== END 2020-03-05 12:48 | disposition home or self-care (01) ==
LOC: ED 03:07
DX: E87.1 Hypo-osmolality and hyponatremia (principal); I10 Essential (primary) hypertension; E11.9 Type 2 diabetes mellitus without complications; M13.88 Other specified arthritis, other site; F41.9 Anxiety disorder, unspecified; F32.89 Other specified depressive episodes; E78.00 Pure hypercholesterolemia, unspecified; Z90.49 Acquired absence of other specified parts of digestive tract; Z90.89 Acquired absence of other organs; Z90.710 Acquired absence of both cervix and uterus; Z98.890 Other specified postprocedural states; Z79.899 Other long term (current) drug therapy
CPT/HCPCS: 36415; 70450; 71045; 80053; 81001; 82140; 84484; 85025; 93005; 93010; 96361; 96374; 99284; J2405; J7030

== ENCOUNTER 2020-08-20 21:51 | Emergency (ER) | payer MEDICARE ==
--- NOTE | 2020-08-20 22:47 | XRay Report ---
CHEST 2 VIEWS 20-39 INDICATION / CLINICAL INFORMATION: Chest Pain COMPARISON: 03/05/2020 FINDINGS: SUPPORT DEVICES: None. HEART / MEDIASTINUM: Mild cardiomegaly LUNGS / PLEURA: Pulmonary vascularity appears within normal limits. No pleural effusions are seen. Melida ng lawrence are clear without contrast. No pneumothorax. ADDITIONAL FINDINGS: No significant additional findings. IMPRESSION: No significant acute abnormality Signer Name: Valentino Browne MD Signed: 08/20/2020 10:42 PM Workstation Name: [id number]
[2020-08-20 23:37] LABS: Basophils % (Auto) 0.5 % (0.0-1.8); Eosinophils # (Auto) 0.1 K/mm3 (0.0-0.4); Eosinophils % (Auto) 1.9 % (0.0-4.3); Hematocrit 37.3 % (30.3-42.9); Hemoglobin 12.5 gm/dl (10.1-14.3); Lymphocytes # (Auto) 2.6 K/mm3 (1.2-5.4); Lymphocytes % (Auto) 49.7 % (13.4-35.0); Mean Corpuscular HGB Conc 34 % (30-34); Mean Corpuscular Volume 89 fl (79-97); Monocytes # (Auto) 0.6 K/mm3 (0.0-0.8); Monocytes % (Auto) 11.1 % (0.0-7.3); Platelet Count 280 K/mm3 (140-440); Red Cell Distribution Width 13.6 % (13.2-15.2)
[2020-08-20 23:50] LABS: Blood Urea Nitrogen 13 mg/dL (7-17); Calcium 10.4 mg/dL (8.4-10.2); Hemolysis Index 5
[2020-08-20 23:52] LABS: BUN/Creatinine Ratio 22
--- NOTE | 2020-08-21 05:02 | Emergency Department Report ---
ED Palpitations HPI - General Chief Complaint: Chest Pain Stated Complaint: CHEST PAIN Time Seen by Provider: 08/21/20 03:19 Source: patient Mode of arrival: Ambulatory Limitations: No Limitations - History of Present Illness Initial Comments: 64-year-old female with a past medical history of arthritis, diabetes, hypertension, anxiety/panic attacks, and elevated cholesterol presents to the hospital complaining of intermittent palpitations for the last 3 days. Patient states symptoms occur either while walking or at rest. She feels like her heart is beating real fast and she has associated dizziness and mild shortness of breath. She denies chest pain. A couple of months ago patient was admitted to [facility] for chest pain. She had a cardiac cath that was negative for blockages as per patient. She states she was told her heart rate was "ir regular" and she was discharged on aspirin has not been placed on anticoagulants. Patient's medications list include clonazepam for anxiety as well as metoprolol 50 mg twice a day, verapamil nightly, and additional medications. Patient's senior cytotechnologist is associated with [facility]. Patient has not been able to document her heart rate and does not know how to count her pulse. - Related Data Home Medications Medication Instructions Recorded Confirmed Last Taken ALBUTEROL NEB's [Proventil] 2.5 mg IH Q4H PRN 03/03/17 08/21/20 1 Day Ago ~03/02/17 Aspirin 81 mg PO QHS 03/03/17 08/21/20 03/04/20 AtorvaSTATin [Lipitor] 20 mg PO QHS 03/03/17 08/21/20 03/04/20 DULoxetine [Cymbalta] 20 mg PO DAILY 03/03/17 08/21/20 03/04/20 Losartan [Cozaar] 100 mg PO QDAY 03/03/17 08/21/20 03/05/20 [place]-3/Dha/Epa/Fish Oil [Fish Oil] 500 mg PO DAILY 03/03/17 08/21/20 03/04/20 cloNIDine [Catapres] 0.2 mg PO BID 03/03/17 08/21/20 03/05/20 clonazePAM [Klonopin] 2 mg PO BID PRN 03/03/17 08/21/20 03/04/20 hydroCHLOROthiazide [HCTZ] 25 mg PO QDAY 04/09/0908/21/20 03/05/20 Metoprolol Tartrate [Lopressor] 50 mg PO BID 08/21/20 08/21/20 Unknown Naproxen 500 mg PO BID 08/21/20 08/21/20 Unknown metFORMIN [Glucophage] 850 mg PO BID 08/21/20 08/21/20 Unknown valACYclovir [Valtrex] 500 mg PO QDAY 08/21/20 08/21/20 Unknown verapamiL 180 mg PO QHS 08/21/20 08/21/20 Unknown Previous Rx's Medication Instructions Recorded Last Taken Type Ondansetron [Zofran Odt] 4 mg PO Q8HR PRN #14 tab.rapdis 03/05/20 Unknown Rx Allergies Allergy/AdvReac Type Severity Reaction Status Date / Time No Known Allergies Allergy Verified 03/05/20 03:17 ED Review of Systems ROS: Stated complaint: CHEST PAIN Other details as noted in HPI Comment: All other systems reviewed and negative ED Past Medical Hx - Past Medical History Previous Medical History?: Yes Hx Hypertension: Yes Hx Heart Attack/AMI: No Hx Diabetes: Yes Hx Liver Disease: No Hx Renal Disease: No Hx Sickle Cell Disease: No Hx Arthritis: Yes Hx Seizures: No Hx Psychiatric Treatment: Yes (ANXIETY/ PANIC ATTACKS/ DEPRESSION) Additional medical history: HERPES, elevated cholesterol, osteopenia - Surgical History Past Surgical History?: Yes Hx Cholecystectomy: Yes Hx Appendectomy: Yes Additional Surgical History: HYSTERECTOMY. LEFT KNEE SURGERY X 2. RIGHT KNEE SURGERY. RIGHT CARPAL TUNNEL RELEASE. TONSILLECTOMY - Social History Smoking Status: Never Smoker Substance Use Type: None - Medications Home Medications: Home Medications Medication Instructions Recorded Confirmed Last Taken Type ALBUTEROL NEB's [Proventil] 2.5 mg IH Q4H PRN 03/03/17 08/21/20 1 Day Ago History ~03/02/17 Aspirin 81 mg PO QHS 03/03/17 08/21/20 03/04/20 History AtorvaSTATin [Lipitor] 20 mg PO QHS 03/03/17 08/21/20 03/04/20 History DULoxetine [Cymbalta] 20 mg PO DAILY 03/03/17 08/21/20 03/04/20 History Losartan [Cozaar] 100 mg PO QDAY 03/03/17 08/21/20 03/05/20 History [place]-3/Dha/Epa/Fish Oil [Fish Oil] 500 mg PO DAILY 03/03/17 08/21/20 03/04/20 History cloNIDine [Catapres] 0.2 mg PO BID 03/03/17 08/21/20 03/05/20 History clonazePAM [Klonopin] 2 mg PO BID PRN 03/03/17 08/21/20 03/04/20 History hydroCHLOROthiazide [HCTZ] 25 mg PO QDAY 03/03/17 08/21/20 03/05/20 History Ondansetron [Zofran Odt] 4 mg PO Q8HR PRN #14 tab.rapdis 03/05/20 08/21/20 Unknown Rx Metoprolol Tartrate [Lopressor] 50 mg PO BID 08/21/20 08/21/20 Unknown History Naproxen 500 mg PO BID 08/21/20 08/21/20 Unknown History metFORMIN [Glucophage] 850 mg PO BID 08/21/20 08/21/20 Unknown History valACYclovir [Valtrex] 500 mg PO QDAY 08/21/20 08/21/20 Unknown History verapamiL 180 mg PO QHS 08/21/20 08/21/20 Unknown History ED Physical Exam - General Limitations: No Limitations - Other Other exam information: General: No acute distress Head: Atraumatic Eyes: normal appearance ENT: Moist mucous membranes Neck: Normal appearance, no midline tenderness Chest: Clear to auscultation bilaterally CV: Bradycardic regular rhythm Abdomen: Soft, normal bowel sounds, nontender, nondistended, no rebound or guarding Back: Normal inspection Extremity: Normal inspection, full range of motion Neuro: Alert O x 3, no facial asymmetry, speech clear, no gross motor sensory deficit Psych: Appropriate behavior Skin: No rash ED Course Vital Signs 08/20/20 08/21/20 08/21/20 21:57 03:21 03:31 Temperature 98.5 F Pulse Rate 47 L Respiratory 12 Rate Blood Pressure 123/74 Blood Pressure [Left] O2 Sat by Pulse 100 100 100 Oximetry 08/21/20 08/21/20 08/21/20 03:45 04:00 04:15 Temperature 98.4 F Pulse Rate 47 L 48 L 49 L Respiratory 15 15 13 Rate Blood Pressure 148/73 137/69 137/74 Blood Pressure 138/72 [Left] O2 Sat by Pulse 99 99 99 Oximetry 08/21/20 04:30 Temperature Pulse Rate 48 L Respiratory 13 Rate Blood Pressure 133/74 Blood Pressure [Left] O2 Sat by Pulse 100 Oximetry ED Medical Decision Making - Lab Data Result diagrams: 08/20/20 22:21 08/20/20 22:21 Lab Results 08/20/20 08/20/20 08/21/20 Range/Units 22:21 22:21 01:17 WBC 5.2 (4.5-11.0) K/mm3 RBC 4.20 (3.65-5.03) M/mm3 Hgb 12.5 (10.1-14.3) gm/dl Hct 37.3 (30.3-42.9) % MCV 89 (79-97) fl MCH 30 (28-32) pg MCHC 34 (30-34) % RDW 13.6 (13.2-15.2) % Plt Count 280 (140-440) K/mm3 Lymph % (Auto) 49.7 H (13.4-35.0) % Stone % (Auto) 11.1 H (0.0-7.3) % Eos % (Auto) 1.9 (0.0-4.3) % Baso % (Auto) 0.5 (0.0-1.8) % Lymph # (Auto) 2.6 (1.2-5.4) K/mm3 Stone # (Auto) 0.6 (0.0-0.8) K/mm3 Eos # (Auto) 0.1 (0.0-0.4) K/mm3 Baso # (Auto) 0.0 (0.0-0.1) K/mm3 Seg Neutrophils % 36.8 L (40.0-70.0) % Seg Neutrophils # 1.9 (1.8-7.7) K/mm3 D-Dimer (0-234) ng/mlDDU Sodium 135 L (137-145) mmol/L Potassium 4.2 (3.6-5.0) mmol/L Chloride 93.9 L (98-107) mmol/L Carbon Dioxide 26 (22-30) mmol/L Anion Gap 19 mmol/L BUN 13 (7-17) mg/dL Creatinine 0.6 (0.6-1.2) mg/dL Estimated GFR > 60 ml/min BUN/Creatinine Ratio 22 % Glucose 127 H (65-100) mg/dL Calcium 10.4 H (8.4-10.2) mg/dL Troponin T < 0.010 < 0.010 (0.00-0.029) ng/mL TSH (0.270-4.200) mlU/mL Free T4 (0.76-1.46) ng/dL 08/21/20 08/21/20 08/21/20 Range/Units 03:34 03:34 03:34 WBC (4.5-11.0) K/mm3 RBC (3.65-5.03) M/mm3 Hgb (10.1-14.3) gm/dl Hct (30.3-42.9) % MCV (79-97) fl MCH (28-32) pg MCHC (30-34) % RDW (13.2-15.2) % Plt Count (140-440) K/mm3 Lymph % (Auto) (13.4-35.0) % Stone % (Auto) (0.0-7.3) % Eos % (Auto) (0.0-4.3) % Baso % (Auto) (0.0-1.8) % Lymph # (Auto) (1.2-5.4) K/mm3 Stone # (Auto) (0.0-0.8) K/mm3 Eos # (Auto) (0.0-0.4) K/mm3 Baso # (Auto) (0.0-0.1) K/mm3 Seg Neutrophils % (40.0-70.0) % Seg Neutrophils # (1.8-7.7) K/mm3 D-Dimer 151.47 (0-234) ng/mlDDU Sodium (137-145) mmol/L Potassium (3.6-5.0) mmol/L Chloride (98-107) mmol/L Carbon Dioxide (22-30) mmol/L Anion Gap mmol/L BUN (7-17) mg/dL Creatinine (0.6-1.2) mg/dL Estimated GFR ml/min BUN/Creatinine Ratio % Glucose (65-100) mg/dL Calcium (8.4-10.2) mg/dL Troponin T < 0.010 (0.00-0.029) ng/mL TSH 1.970 (0.270-4.200) mlU/mL Free T4 1.00 (0.76-1.46) ng/dL - EKG Data -: EKG Interpreted by Me EKG shows normal: sinus rhythm, ST-T waves (Patient has anterior and inferior T wave inversions that are similar to previous on record) Rate: bradycardia (47) - EKG Data When compared to previous EKG there are: no significant change (No change compared to March 05, 2022) 08/21/20 05:04 Repeat EKG performed at 4:20 AM is similar to previous heart rate 47 - Medical Decision Making Patient presents to the hospital complaining of intermittent palpitations with lightheadedness for the last several days without chest pain. Patient has had persistent bradycardia while in the ED and has remained normotensive. As per medical record review patient has chronic bradycardia and is currently on a beta-tay. Patient on a monitor in the ED for over an hour without any episodes of tachycardia or arrhythmia. Patient is ED work-up including CBC, B MP, chemistries, thyroid, and d-dimer are within normal range. EKG unchanged in the ED x2 and is similar to previous on record. Patient also has troponin negative x2 and continues to deny chest pain. Patient educated on how to check her pulse and advised to get a monitor to measure her heart rate during her episodes. She is advised to continue her current medication and follow-up with her senior cytotechnologist for further work-up and evaluation and possible Holter monitor placement if symptoms Critical Care Time: No Critical care attestation.: If time is entered above; I have spent that time in minutes in the direct care of this critically ill patient, excluding procedure time. ED Disposition Clinical Impression: Intermittent palpitations, Bradycardia Disposition: - TO HOME OR SELFCARE Is pt being admited?: No Does the pt Need Aspirin: No Condition: Stable Instructions: Palpitations (ED) Additional Instructions: Continue your current medication as prescribed. Follow-up with your senior cytotechnologist for further evaluation and work-up. Monitor your heart rate during episodes as discussed and document. Return if symptoms worsen as indicated by your discharge instructions. Referrals: CASSANDRA NAVARRETE DO [Primary Care Provider] - 3-5 Days your, cardiolgist [Other] - 3-5 Days Time of Disposition: 05:14
[2020-08-21 05:48] VITALS: BP 148/82
== END 2020-08-21 05:48 | disposition home or self-care (01) ==
LOC: ED 21:51
DX: R00.1 Bradycardia, unspecified (principal); R00.2 Palpitations; I10 Essential (primary) hypertension; E11.9 Type 2 diabetes mellitus without complications; M13.88 Other specified arthritis, other site; E78.00 Pure hypercholesterolemia, unspecified; F41.9 Anxiety disorder, unspecified; F32.89 Other specified depressive episodes; Z90.710 Acquired absence of both cervix and uterus; Z90.49 Acquired absence of other specified parts of digestive tract; Z90.79 Acquired absence of other genital organ(s); Z98.890 Other specified postprocedural states; Z79.899 Other long term (current) drug therapy
CPT/HCPCS: 36415; 71046; 80048; 84439; 84443; 84484; 85025; 85379; 93005

== ENCOUNTER 2021-05-09 13:14 | Emergency (ER) | payer MEDICARE ==
[2021-05-09] MEDS ORDERED: ASPIRIN 81 MG TAB CHEW PO ONE (13:53)
[2021-05-09] MEDS ORDERED: ACETAMINOPHEN 500 MG TAB PO ONE (13:53)
[2021-05-09] MEDS ORDERED: ONDANSETRON 4 MG ODT TAB PO ONE (13:54)
[2021-05-09] MEDS ORDERED: ALUM-MAG HYDROXIDE-SIMETHICONE 200-200-20MG/5ML ORAL LIQD 30 ML PO ONE (13:54)
--- NOTE | 2021-05-09 14:16 | Emergency Department Report ---
ED Chest Pain HPI - General Chief Complaint: Chest Pain Stated Complaint: CHEST PAIN PUI?: No Time Seen by Provider: 05/09/21 13:52 Source: patient Mode of arrival: Stretcher Limitations: No Limitations - History of Present Illness Initial Comments: Chief complaint chest pain HPI: This is a 65-year-old female with history of hypertension, diabetes mellitus, anxiety, arthritis who presents with chest pain. Sharp chest pain for the past 5 days since Friday. Pain is mostly persistent. No change or eating moving. She is afraid to eat because she thinks that it may be indigestion. No known history of cardiac disease. Last 2019, patient underwent cardiac catheterization at [facility]. She reported that she did not have any significant coronary artery disease. Previously patient has been followed by painter touch up associated with [facility]. PCP Dr. Jazlyn Adam. Family history notable for brother who had heart attack several years ago. MD Complaint: chest pain -: Gradual, days(s) (5 days ago on Friday) Onset: during rest Pain Location: left chest Pain Radiation: none Severity: severe Severity scale (0 -10): 9 Quality: sharp Consistency: constant Improves With: nothing Worsens With: nothing Treatments Prior to Arrival: other (EMS transport) - Related Data Home Medications Medication Instructions Recorded Confirmed Last Taken ALBUTEROL NEB's [Proventil] 2.5 mg IH Q4H PRN 03/03/17 08/21/20 1 Day Ago ~03/02/17 Aspirin 81 mg PO QHS 03/03/17 08/21/20 03/04/20 AtorvaSTATin [Lipitor] 20 mg PO QHS 03/03/17 08/21/20 03/04/20 DULoxetine [Cymbalta] 20 mg PO DAILY 03/03/17 08/21/20 03/04/20 Losartan [Cozaar] 100 mg PO QDAY 03/03/17 08/21/20 03/05/20 [place]-3/Dha/Epa/Fish Oil [Fish Oil] 500 mg PO DAILY 03/03/17 08/21/20 03/04/20 cloNIDine [Catapres] 0.2 mg PO BID 03/03/17 08/21/20 03/05/20 clonazePAM [Klonopin] 2 mg PO BID PRN 03/03/17 08/21/20 03/04/20 hydroCHLOROthiazide [HCTZ] 25 mg PO QDAY 03/03/17 08/21/20 03/05/20 Metoprolol Tartrate [Lopressor] 50 mg PO BID 08/21/20 08/21/20 Unknown Naproxen 500 mg PO BID 08/21/20 08/21/20 Unknown metFORMIN [Glucophage] 850 mg PO BID 08/21/20 08/21/20 Unknown valACYclovir [Valtrex] 500 mg PO QDAY 08/21/20 08/21/20 Unknown verapamiL 180 mg PO QHS 08/21/20 08/21/20 Unknown Previous Rx's Medication Instructions Recorded Last Taken Type Ondansetron [Zofran Odt] 4 mg PO Q8HR PRN #14 tab.rapdis 03/05/20 Unknown Rx Allergies Allergy/AdvReac Type Severity Reaction Status Date / Time hydralazine Allergy Hives Verified 05/09/21 15:51 Heart Score - HEART Score History: Slightly suspicious EKG: Non-specific Age: > 65 Risk factors: 1-2 risk factors Troponin: < normal limit HEART Score: 4 - EKG Read Time Time EKG Completed: 14:18 EKG Read Time: 14:18 ED Review of Systems ROS: Stated complaint: CHEST PAIN Other details as noted in HPI Comment: All other systems reviewed and negative Constitutional: denies: fever, malaise Respiratory: denies: cough, shortness of breath Cardiovascular: chest pain Gastrointestinal: denies: abdominal pain ED Past Medical Hx - Past Medical History Previous Medical History?: Yes Hx Hypertension: Yes Hx Heart Attack/AMI: No Hx Diabetes: Yes Hx Liver Disease: No Hx Renal Disease: No Hx Sickle Cell Disease: No Hx Arthritis: Yes Hx Seizures: No Hx Psychiatric Treatment: Yes (ANXIETY/ PANIC ATTACKS/ DEPRESSION) Additional medical history: HERPES, elevated cholesterol, osteopenia - Surgical History Past Surgical History?: Yes Hx Cholecystectomy: Yes Hx Appendectomy: Yes Additional Surgical History: HYSTERECTOMY. LEFT KNEE SURGERY X 2. RIGHT KNEE SURGERY. RIGHT CARPAL TUNNEL RELEASE. TONSILLECTOMY - Social History Smoking Status: Never Smoker Substance Use Type: None - Medications Home Medications: Home Medications Medication Instructions Recorded Confirmed Last Taken Type ALBUTEROL NEB's [Proventil] 2.5 mg IH Q4H PRN 03/03/17 08/21/20 1 Day Ago History ~03/02/17 Aspirin 81 mg PO QHS 03/03/17 08/21/20 03/04/20 History AtorvaSTATin [Lipitor] 20 mg PO QHS 03/03/17 08/21/20 03/04/20 History DULoxetine [Cymbalta] 20 mg PO DAILY 03/03/17 08/21/20 03/04/20 History Losartan [Cozaar] 100 mg PO QDAY 03/03/17 08/21/20 03/05/20 History [place]-3/Dha/Epa/Fish Oil [Fish Oil] 500 mg PO DAILY 03/03/17 08/21/20 03/04/20 History cloNIDine [Catapres] 0.2 mg PO BID 03/03/17 08/21/20 03/05/20 History clonazePAM [Klonopin] 2 mg PO BID PRN 03/03/17 08/21/20 03/04/20 History hydroCHLOROthiazide [HCTZ] 25 mg PO QDAY 03/03/17 08/21/20 03/05/20 History Ondansetron [Zofran Odt] 4 mg PO Q8HR PRN #14 tab.rapdis 03/05/20 08/21/20 Unknown Rx Metoprolol Tartrate [Lopressor] 50 mg PO BID 08/21/20 08/21/20 Unknown History Naproxen 500 mg PO BID 08/21/20 08/21/20 Unknown History metFORMIN [Glucophage] 850 mg PO BID 08/21/20 08/21/20 Unknown History valACYclovir [Valtrex] 500 mg PO QDAY 08/21/20 08/21/20 Unknown History verapamiL 180 mg PO QHS 08/21/20 08/21/20 Unknown History ED Physical Exam - General Limitations: No Limitations General appearance: alert, in no apparent distress, anxious, other (Tearful, holding left chest) - Head Head exam: Present: atraumatic, normocephalic - Eye Eye exam: Present: normal appearance - ENT ENT exam: Present: mucous membranes moist - Neck Neck exam: Present: normal inspection, full ROM - Respiratory Respiratory exam: Present: normal lung sounds bilaterally. Absent: respiratory distress - Cardiovascular Cardiovascular Exam: Present: regular rate, normal rhythm, normal heart sounds. Absent: systolic murmur, diastolic murmur, rubs, gallop - GI/Abdominal GI/Abdominal exam: Present: soft, normal bowel sounds. Absent: distended, tenderness, guarding, rebound - Extremities Exam Extremities exam: Present: normal inspection - Neurological Exam Neurological exam: Present: alert, oriented X3 - Psychiatric Psychiatric exam: Present: normal affect, depressed. Absent: suicidal ideation - Skin Skin exam: Present: warm, dry, intact, normal color. Absent: rash ED Course Vital Signs 05/09/21 13:47 Pulse Rate 52 L VIK score - Vik Score Age > 65: (0) No Aspirin use within the Past 7 Days: (1) Yes 3 or more CAD Risk Factors: (1) Yes 2 or more Angina events in past 24 hrs: (0) No Known CAD with more than 50% Stenosis: (0) No Elevated Cardiac Markers: (0) No ST Deviation Greater than 0.5mm: (0) No VIK Score: 2 ED Medical Decision Making - Lab Data Result diagrams: 05/09/21 14:09 05/09/21 14:09 Laboratory Results - last 24 hr 05/09/21 05/09/21 05/09/21 14:09 14:09 16:09 WBC 6.3 RBC 4.19 Hgb 12.7 Hct 37.1 MCV 89 MCH 30 MCHC 34 RDW 14.1 Plt Count 291 Lymph % (Auto) 37.0 H Gordon % (Auto) 9.7 H Eos % (Auto) 1.0 Baso % (Auto) 0.5 Lymph # (Auto) 2.3 Gordon # (Auto) 0.6 Eos # (Auto) 0.1 Baso # (Auto) 0.0 Seg Neutrophils % 51.8 Seg Neutrophils # 3.3 Sodium 139 Potassium 4.0 Chloride 100.8 Carbon Dioxide 25 Anion Gap 17 BUN 8 Creatinine 0.5 L Estimated GFR > 60 BUN/Creatinine Ratio 16 Glucose 89 Calcium 10.2 Total Bilirubin 0.30 AST 14 ALT 13 Alkaline Phosphatase 71 Troponin T < 0.010 < 0.010 Total Protein 7.1 Albumin 4.7 Albumin/Globulin Ratio 2.0 - EKG Data -: EKG Interpreted by Me EKG shows normal: sinus rhythm, axis, intervals Rate: normal - EKG Data Interpretation: nonspecific ST-T wave jacey 05/09/21 14:24 EKG obtained 1418 EKG interpreted by me Sinus bradycardia rate 55 bpm normal axis normal intervals inverted T waves in the anterior inferior leads no ST elevation nonspecific T wave pattern EKG is unchanged from 08/20/2020 - Radiology Data Radiology results: report reviewed Patient Name: BOBBY DAVIDSON Gender: Female Date of : 1955 Referring Provider: KHLOE AVILA Organization: [facility] Accession Number: [id number] Requested Date: May 09, 2021 13:53 Report Status: Final Requested Procedure: 1 Procedure Description: XR chest 1V ap Modality: XR Findings Reporting MD: Huber Johnston Dictation Time: May 09, 2021 13:39 Chrome Cleaner: Not available Engine Dispatcher Date: CHEST 1 VIEW INDICATION / CLINICAL INFORMATION: Chest Pain. COMPARISON: 08/20/2020 FINDINGS: SUPPORT DEVICES: None. HEART / MEDIASTINUM: No significant abnormality. LUNGS / PLEURA: No significant pulmonary or pleural abnormality. No pneumothorax. ADDITIONAL FINDINGS: No significant additional findings. IMPRESSION: No acute disease or interval change from 08/20/2020 Signer Name: Huber Johnston MD FACR Signed: 05/09/2021 1:39 PM Workstation Name: [employer] - Medical Decision Making Chest pain highly atypical for ACS, history of normal cardiac catheterization last year. Considerations GERD, chest wall pain. Troponin x2 -, EKG unchanged. Heart score 4 however patient has had extensive cardiac work-up. I feel patient is low risk for major adverse cardiac event. Patient understands to follow-up with her personal painter touch up. Critical care attestation.: If time is entered above; I have spent that time in minutes in the direct care of this critically ill patient, excluding procedure time. ED Disposition Clinical Impression: GERD (gastroesophageal reflux disease), Chest wall pain Disposition: DC-01 TO HOME OR SELFCARE Is pt being admited?: No Does the pt Need Aspirin: No Condition: Stable Instructions: Nonspecific Chest Pain, Adult Referrals: JAZLYN ADAM [Primary Care Provider] - 3-5 Days
[2021-05-09 14:19] LABS: Basophils % (Auto) 0.5 % (0.0-1.8); Eosinophils # (Auto) 0.1 K/mm3 (0.0-0.4); Hematocrit 37.1 % (30.3-42.9); Hemoglobin 12.7 gm/dl (10.1-14.3); Lymphocytes # (Auto) 2.3 K/mm3 (1.2-5.4); Mean Corpuscular HGB Conc 34 % (30-34); Mean Corpuscular Volume 89 fl (79-97); Monocytes # (Auto) 0.6 K/mm3 (0.0-0.8); Monocytes % (Auto) 9.7 % (0.0-7.3); Platelet Count 291 K/mm3 (140-440); Red Blood Count 4.19 M/mm3 (3.65-5.03); Red Cell Distribution Width 14.1 % (13.2-15.2)
--- NOTE | 2021-05-09 14:43 | XRay Report ---
CHEST 1 VIEW INDICATION / CLINICAL INFORMATION: Chest Pain. COMPARISON: 08/20/2020 FINDINGS: SUPPORT DEVICES: None. HEART / MEDIASTINUM: No significant abnormality. LUNGS / PLEURA: No significant pulmonary or pleural abnormality. No pneumothorax. ADDITIONAL FINDINGS: No significant additional findings. IMPRESSION: No acute disease or interval change from 08/20/2020 Signer Name: Huber Johnston MD FACR Signed: 05/09/2021 2:39 PM Workstation Name: [employer]
[2021-05-09 15:51] LABS: Alanine Aminotransferase 13 units/L (7-56); Albumin 4.7 g/dL (3.9-5); Blood Urea Nitrogen 8 mg/dL (7-17); Calcium 10.2 mg/dL (8.4-10.2); Hemolysis Index 5
[2021-05-09 15:52] LABS: BUN/Creatinine Ratio 16
[2021-05-09 19:23] VITALS: BP 152/72
--- NOTE | 2021-05-11 19:27 | Electrocardiograph Report ---
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
== END 2021-05-09 19:23 | disposition home or self-care (01) ==
LOC: ED 13:14
DX: K21.9 Gastro-esophageal reflux disease without esophagitis (principal); R07.89 Other chest pain; I10 Essential (primary) hypertension; E11.9 Type 2 diabetes mellitus without complications; M19.90 Unspecified osteoarthritis, unspecified site; F41.9 Anxiety disorder, unspecified; F32.9 Major depressive disorder, single episode, unspecified; E78.00 Pure hypercholesterolemia, unspecified; Z90.49 Acquired absence of other specified parts of digestive tract; Z90.710 Acquired absence of both cervix and uterus; Z98.890 Other specified postprocedural states; Z79.899 Other long term (current) drug therapy; Z88.8 Allergy status to other drugs, medicaments and biological substances
CPT/HCPCS: 36415; 71045; 80053; 84484; 85025; 93005; Q0162